=== PATIENT | male | born 1980 | race Caucasian/White ===

== ENCOUNTER 2017-01-29 12:12 | Emergency (ER) | payer OTHER ==
[~2017-01-29] VITALS: Ht 177.8 cm; Wt 73.9 kg
[~2017-01-29 12:12] MED LIST: /THIA10TA OR; DEPA500T OR; FOLI1TAB OR; IBUP400T OR; MULTIVIT PO; TRAZ100T OR
[2017-01-29 12:13] VITALS: BP 133/101
[2017-01-29] MEDS ORDERED: ONDANSETRON 4 MG ORAL DISINTEGRATING TAB (S0181) PO ONE (13:15)
[2017-01-29] MEDS ORDERED: GI COCKTAIL 50ML BTL(HYOSCYAMINE/MAALOX/LIDOCAINE VISCOUS)(1:3:1) PO ONE (13:15)
[2017-01-29] MEDS ORDERED: ZOFR4TAB3 PO (13:32)
== END 2017-01-29 13:39 | disposition home or self-care (01) ==
LOC: M ED 13:16
DX: R10.84 Generalized abdominal pain (principal); R11.2 Nausea with vomiting, unspecified; R19.7 Diarrhea, unspecified; F17.210 Nicotine dependence, cigarettes, uncomplicated

== ENCOUNTER 2017-12-08 11:20 | Emergency (ER) | payer OTHER | END 2017-12-08 15:06 | disposition home or self-care (01) | LOC: M ED 11:20 | DX: M62.838 Other muscle spasm (principal); F41.9 Anxiety disorder, unspecified; F33.9 Major depressive disorder, recurrent, unspecified; R56.9 Unspecified convulsions | CPT/HCPCS: 71101 ==

== ENCOUNTER 2018-02-10 14:26 | Inpatient (IN) | payer OTHER ==
[2018-02-10] MEDS: NS 1,000 ML IV ×2 (14:57→16:14)
[2018-02-10] MEDS: ONDANSETRON 4MG/2ML VIAL (J2405) IV ×2 (14:58→18:19)
[2018-02-10 15:36] LABS: ANION GAP 15 MEQ/L (8-16); BLOOD UREA NITROGEN 15 MG/DL (7-18); CALCIUM LEVEL 10.6 MG/DL (8.5-10.1); CARBON DIOXIDE LEVEL 23 MEQ/L (21-32); CHLORIDE LEVEL 96 MEQ/L (98-107); CREATININE FOR GFR 1.13 MG/DL (0.70-1.30); GLOMERULAR FILTRATION RATE > 60.0 (>60); GLUCOSE, FASTING 120 MG/DL (70-100); MAGNESIUM LEVEL 1.8 MG/DL (1.8-2.4); POTASSIUM SERUM 3.4 MEQ/L (3.5-5.1); SODIUM LEVEL 134 MEQ/L (136-145)
[2018-02-10] MEDS: METOCLOPRAMIDE INJ 10MG/2ML VIAL (J2765) IV (15:37)
[2018-02-10] MEDS: diphenhydrAMINE INJ 50MG/ML VIAL (J1200) IV (15:37)
[2018-02-10 16:41] LABS: BASO % 0.3 % (0.0-1.0); HEMATOCRIT 46.9 % (42.0-52.0); IMMATURE GRANULOCYTE % 0.5 % (0-3.0); LYMPH # 1.5 10^3/uL (1.5-4.5); LYMPH % 9.8 % (24.0-44.0); MEAN CORPUSCULAR HEMOGLOBIN 32.2 pg (27.0-33.0); MEAN CORPUSCULAR HGB CONC 36.2 g/dl (32.0-36.5); MEAN CORPUSCULAR VOLUME 88.8 fl (80.0-96.0); MONO # 0.9 10^3/uL (0.0-0.8); MONO % 6.3 % (0.0-5.0); NEUTROPHILS # 12.4 10^3/uL (1.8-7.7); NEUTROPHILS % 83.1 % (36.0-66.0); PLATELET COUNT, AUTOMATED 189 10^3/uL (150-450); RED BLOOD COUNT 5.28 10^6/uL (4.30-6.10); RED CELL DISTRIBUTION WIDTH 12.1 % (11.5-14.5); WHITE BLOOD COUNT 14.9 10^3/uL (4.0-10.0)
[2018-02-10 16:54] LABS: ALKALINE PHOSPHATASE 105 U/L (45-117); AST/SGOT 43 U/L (7-37); BILIRUBIN,TOTAL 1.4 MG/DL (0.2-1.0); LIPASE 2812 U/L (73-393); TOTAL PROTEIN 8.7 GM/DL (6.4-8.2)
[2018-02-10 17:15] LABS: ALT/SGPT 38 U/L (12-78); BILIRUBIN,DIRECT 0.4 MG/DL (0.0-0.2)
[2018-02-10 17:29] LABS: AMYLASE 198 U/L (25-115)
[2018-02-10] MEDS ORDERED: ISOVUE-370 76% 100ML VIAL (Q9967) As Ordered (18:07)
[2018-02-10] MEDS: MORPHINE 4 MG/ML 1ML VIAL/SYRINGE (J2270) IV ×2 (18:15→20:05)
[2018-02-10] MEDS ORDERED: FOLIC ACID 1 MG in NS 50 ML IV (18:30)
[2018-02-10] MEDS ORDERED: THIAMINE HCL 200 MG/2 ML VIAL (J3411) IV (18:30)
[2018-02-10 18:35] LABS: ALBUMIN 4.7 GM/DL (3.2-5.2); ALBUMIN/GLOBULIN RATIO 1.18 (1.00-1.93)
[2018-02-10 19:19] LABS: INR 0.99; PROTHROMBIN TIME 13.2 SECONDS (12.4-14.5)
[2018-02-10] MEDS: LORazepam 2 MG/ML VIAL (J2060) IV (20:02)
[2018-02-10] MEDS: MAG SULF 1GM/100ML (MAG RUN) 1 GM in APPROPRIATE DILUENT 1 EA IV (20:07)
[2018-02-10 20:54] LABS: ETHYL ALCOHOL (ETHANOL) 0.008 % (0.000-0.010)
[2018-02-10] MEDS: HEPARIN SOD (PORCINE) 5000 UNITS/ML VIAL SC (22:14)
[2018-02-10] MEDS: PROCHLORPERAZINE 10 MG/2 ML VIAL (J0780) IV (23:08)
[2018-02-10] MEDS: KETOROLAC 30 MG/ML VIAL (J1885) IV (23:08)
[2018-02-10] MEDS: MULTIVITAMIN -ADULT INJECTION 10 ML, THIAMINE INJection 100 MG, FOLIC ACID 1 MG in NS 1... IV (23:08)
[2018-02-11 00:08] LABS: ANION GAP 6 MEQ/L (8-16); BLOOD UREA NITROGEN 14 MG/DL (7-18); CALCIUM LEVEL 8.4 MG/DL (8.5-10.1); CARBON DIOXIDE LEVEL 26 MEQ/L (21-32); CHLORIDE LEVEL 106 MEQ/L (98-107); CREATININE FOR GFR 0.92 MG/DL (0.70-1.30); GLOMERULAR FILTRATION RATE > 60.0 (>60); GLUCOSE, FASTING 117 MG/DL (70-100); POTASSIUM SERUM 3.8 MEQ/L (3.5-5.1); SODIUM LEVEL 138 MEQ/L (136-145)
[2018-02-11] MEDS: KCL 40MEQ in NS 1000ML 1,000 ML IV ×7 (01:40→19:53)
[2018-02-11] MEDS: ONDANSETRON 4MG/2ML VIAL (J2405) IV ×3 (02:27→18:03)
[2018-02-11] MEDS: MORPHINE 4 MG/ML 1ML VIAL/SYRINGE (J2270) IV ×2 (04:57→18:12)
[2018-02-11] MEDS: HEPARIN SOD (PORCINE) 5000 UNITS/ML VIAL SC ×3 (05:37→19:52)
[2018-02-11 06:57] LABS: MEAN CORPUSCULAR HEMOGLOBIN 32.4 pg (27.0-33.0); MEAN CORPUSCULAR HGB CONC 34.7 g/dl (32.0-36.5); MEAN CORPUSCULAR VOLUME 93.4 fl (80.0-96.0); PLATELET COUNT, AUTOMATED 119 10^3/uL (150-450); RED BLOOD COUNT 4.07 10^6/uL (4.30-6.10); RED CELL DISTRIBUTION WIDTH 12.4 % (11.5-14.5); WHITE BLOOD COUNT 10.2 10^3/uL (4.0-10.0)
[2018-02-11 06:58] LABS: HEMOGLOBIN 13.2 g/dl (13.5-17.5)
[2018-02-11 07:21] LABS: ALBUMIN 3.2 GM/DL (3.2-5.2); ALBUMIN/GLOBULIN RATIO 1.03 (1.00-1.93); ALKALINE PHOSPHATASE 71 U/L (45-117); ALT/SGPT 23 U/L (12-78); ANION GAP 4 MEQ/L (8-16); AST/SGOT 23 U/L (7-37); BILIRUBIN,TOTAL 1.2 MG/DL (0.2-1.0); BLOOD UREA NITROGEN 13 MG/DL (7-18); CALCIUM LEVEL 8.2 MG/DL (8.5-10.1); CARBON DIOXIDE LEVEL 26 MEQ/L (21-32); CHLORIDE LEVEL 109 MEQ/L (98-107); CREATININE FOR GFR 0.76 MG/DL (0.70-1.30); GLOMERULAR FILTRATION RATE > 60.0 (>60); GLUCOSE, FASTING 89 MG/DL (70-100); POTASSIUM SERUM 4.3 MEQ/L (3.5-5.1); SODIUM LEVEL 139 MEQ/L (136-145); TOTAL PROTEIN 6.3 GM/DL (6.4-8.2); TRIGLYCERIDES LEVEL 103 MG/DL (<150)
[2018-02-11] MEDS: MULTIVITAMINS/MINERALS THERAP 1 TAB PO (09:06)
[2018-02-11] MEDS: THIAMINE HCL 200 MG/2 ML VIAL (J3411) IV (09:07)
[2018-02-11] MEDS: FOLIC ACID 1 MG in NS 50 ML IV (09:36)
[2018-02-11] MEDS: KETOROLAC 30 MG/ML VIAL (J1885) IV ×2 (09:59→21:22)
[2018-02-11 10:37] LABS: APPEARANCE, URINE CLEAR (CLEAR); BACTERIA, URINE AUTO NEGATIVE (NEGATIVE); BILIRUBIN, URINE AUTO NEGATIVE (NEGATIVE); BLOOD, URINE BLOOD NEGATIVE (NEGATIVE); COLOR, URINE YELLOW (YELLOW); GLUCOSE, URINE (UA) AUTO NEGATIVE (NEGATIVE); KETONE, URINE AUTO TRACE mg/dL (NEGATIVE); LEUKOCYTE ESTERASE, URINE AUTO NEGATIVE (NEGATIVE); MUCUS, URINE SMALL (NEGATIVE); NITRITE, URINE AUTO NEGATIVE (NEGATIVE); PROTEIN, URINE AUTO NEGATIVE (NEGATIVE); RBC, URINE AUTO 1 /HPF (0-3); SPECIFIC GRAVITY URINE AUTO 1.015 (1.002-1.035); SQUAMOUS EPITHELIAL CELL UR AU 0 /HPF (0-6); UROBILINOGEN, URINE AUTO 0.2 mg/dL (0.0-2.0); WBC, URINE AUTO 0 /HPF (0-3)
[2018-02-11] MEDS: PROCHLORPERAZINE 10 MG/2 ML VIAL (J0780) IV (11:42)
[2018-02-11] MEDS: ACETAMINOPHEN TAB 650MG DOSE (2X325MG) PO (16:07)
[2018-02-12] MEDS: KCL 40MEQ in NS 1000ML 1,000 ML IV ×4 (02:15→23:10)
[2018-02-12] MEDS: HEPARIN SOD (PORCINE) 5000 UNITS/ML VIAL SC (05:22)
[2018-02-12 07:13] LABS: HEMATOCRIT 35.7 % (42.0-52.0); HEMOGLOBIN 12.3 g/dl (13.5-17.5); MEAN CORPUSCULAR HEMOGLOBIN 32.2 pg (27.0-33.0); MEAN CORPUSCULAR HGB CONC 34.5 g/dl (32.0-36.5); MEAN CORPUSCULAR VOLUME 93.5 fl (80.0-96.0); RED BLOOD COUNT 3.82 10^6/uL (4.30-6.10); RED CELL DISTRIBUTION WIDTH 12.1 % (11.5-14.5); WHITE BLOOD COUNT 10.8 10^3/uL (4.0-10.0)
[2018-02-12 07:26] LABS: PLATELET COUNT, AUTOMATED 95 10^3/uL (150-450)
[2018-02-12 07:27] LABS: PLATELET F 96
[2018-02-12] MEDS: ONDANSETRON 4MG/2ML VIAL (J2405) IV ×3 (07:34→23:16)
[2018-02-12] MEDS: MULTIVITAMINS/MINERALS THERAP 1 TAB PO (07:35)
[2018-02-12] MEDS: FOLIC ACID 1 MG in NS 50 ML IV (07:35)
[2018-02-12] MEDS: ACETAMINOPHEN TAB 650MG DOSE (2X325MG) PO (07:35)
[2018-02-12 07:36] LABS: ALBUMIN 3.2 GM/DL (3.2-5.2); ALKALINE PHOSPHATASE 145 U/L (45-117); ALT/SGPT 66 U/L (12-78); ANION GAP 8 MEQ/L (8-16); AST/SGOT 126 U/L (7-37); BILIRUBIN,TOTAL 2.2 MG/DL (0.2-1.0); BLOOD UREA NITROGEN 7 MG/DL (7-18); CALCIUM LEVEL 8.4 MG/DL (8.5-10.1); CARBON DIOXIDE LEVEL 22 MEQ/L (21-32); CHLORIDE LEVEL 108 MEQ/L (98-107); CREATININE FOR GFR 0.69 MG/DL (0.70-1.30); GLOMERULAR FILTRATION RATE > 60.0 (>60); GLUCOSE, FASTING 65 MG/DL (70-100); MAGNESIUM LEVEL 1.9 MG/DL (1.8-2.4); POTASSIUM SERUM 4.6 MEQ/L (3.5-5.1); SODIUM LEVEL 138 MEQ/L (136-145); TOTAL PROTEIN 6.1 GM/DL (6.4-8.2)
[2018-02-12] MEDS: MORPHINE 4 MG/ML 1ML VIAL/SYRINGE (J2270) IV ×3 (08:41→23:17)
[2018-02-12] MEDS: THIAMINE HCL 200 MG/2 ML VIAL (J3411) IV (08:41)
[2018-02-12] MEDS: PROCHLORPERAZINE 10 MG/2 ML VIAL (J0780) IV (12:12)
[2018-02-12 12:45] LABS: HEPATITIS B SURFACE ANTIGEN NEGATIVE (NEGATIVE)
[2018-02-12 13:01] LABS: HEPATITIS B CORE ANTIBODY IGM NEGATIVE (NEGATIVE)
[2018-02-12 13:01] LABS: HEPATITIS C VIRUS ABY INDEX < 0.0 INDEX (<0.8)
[2018-02-12 13:10] LABS: HEPATITIS A ANTIBODY IGM NEGATIVE (NEGATIVE)
[2018-02-13] MEDS: KCL 40MEQ in NS 1000ML 1,000 ML IV (05:44)
[2018-02-13 06:23] LABS: HEMATOCRIT 39.8 % (42.0-52.0); HEMOGLOBIN 13.6 g/dl (13.5-17.5); MEAN CORPUSCULAR HEMOGLOBIN 31.5 pg (27.0-33.0); MEAN CORPUSCULAR HGB CONC 34.2 g/dl (32.0-36.5); MEAN CORPUSCULAR VOLUME 92.1 fl (80.0-96.0); PLATELET COUNT, AUTOMATED 103 10^3/uL (150-450); RED BLOOD COUNT 4.32 10^6/uL (4.30-6.10); RED CELL DISTRIBUTION WIDTH 11.9 % (11.5-14.5)
[2018-02-13 06:50] LABS: ALBUMIN 3.4 GM/DL (3.2-5.2); ALBUMIN/GLOBULIN RATIO 0.81 (1.00-1.93); ALKALINE PHOSPHATASE 158 U/L (45-117); ALT/SGPT 51 U/L (12-78); ANION GAP 8 MEQ/L (8-16); AST/SGOT 48 U/L (7-37); BILIRUBIN,TOTAL 1.4 MG/DL (0.2-1.0); BLOOD UREA NITROGEN 7 MG/DL (7-18); CARBON DIOXIDE LEVEL 24 MEQ/L (21-32); CHLORIDE LEVEL 105 MEQ/L (98-107); CREATININE FOR GFR 0.76 MG/DL (0.70-1.30); GLOMERULAR FILTRATION RATE > 60.0 (>60); GLUCOSE, FASTING 85 MG/DL (70-100); MAGNESIUM LEVEL 2.1 MG/DL (1.8-2.4); POTASSIUM SERUM 4.7 MEQ/L (3.5-5.1); SODIUM LEVEL 137 MEQ/L (136-145); TOTAL PROTEIN 7.6 GM/DL (6.4-8.2)
[2018-02-13] MEDS: FOLIC ACID 1 MG in NS 50 ML IV (08:46)
[2018-02-13] MEDS: THIAMINE HCL 200 MG/2 ML VIAL (J3411) IV (08:47)
[2018-02-13] MEDS: MULTIVITAMINS/MINERALS THERAP 1 TAB PO (08:47)
== END 2018-02-13 13:15 | disposition home or self-care (01) | DRG 282 ==
LOC: M ED 14:26 → M ED INP 18:34 → M MS5PR 19:43
DX: K85.20 Alcohol induced acute pancreatitis without necrosis or infection (principal); F17.298 Nicotine dependence, other tobacco product, with other nicotine-induced disorders; F10.10 Alcohol abuse, uncomplicated; R74.0 Nonspecific elevation of levels of transaminase and lactic acid dehydrogenase [LDH]

== ENCOUNTER 2018-08-01 16:36 | Inpatient (IN) | payer OTHER ==
[2018-08-01] MEDS: OXAZEPAM 15 MG CAP PO (17:08)
[2018-08-01 17:36] LABS: HEMOGLOBIN 14.7 g/dl (13.5-17.5); MEAN CORPUSCULAR HEMOGLOBIN 32.2 pg (27.0-33.0); MEAN CORPUSCULAR VOLUME 91.9 fl (80.0-96.0); PLATELET COUNT, AUTOMATED 145 10^3/uL (150-450); RED BLOOD COUNT 4.57 10^6/uL (4.30-6.10); RED CELL DISTRIBUTION WIDTH 11.9 % (11.5-14.5); WHITE BLOOD COUNT 4.5 10^3/uL (4.0-10.0)
[2018-08-01 18:07] LABS: ACETAMINOPHEN LEVEL < 2.0 UG/ML (10.0-30.0); ALBUMIN 4.1 GM/DL (3.2-5.2); ALBUMIN/GLOBULIN RATIO 1.21 (1.00-1.93); ALKALINE PHOSPHATASE 79 U/L (45-117); ALT/SGPT 94 U/L (12-78); ANION GAP 13 MEQ/L (8-16); AST/SGOT 70 U/L (7-37); BILIRUBIN,DIRECT 0.3 MG/DL (0.0-0.2); BILIRUBIN,TOTAL 0.7 MG/DL (0.2-1.0); BLOOD UREA NITROGEN 7 MG/DL (7-18); CALCIUM LEVEL 8.8 MG/DL (8.5-10.1); CARBON DIOXIDE LEVEL 28 MEQ/L (21-32); CHLORIDE LEVEL 98 MEQ/L (98-107); CREATININE FOR GFR 0.92 MG/DL (0.70-1.30); ETHYL ALCOHOL (ETHANOL) 0.223 % (0.000-0.010); GLOMERULAR FILTRATION RATE > 60.0 (>60); GLUCOSE, FASTING 183 MG/DL (70-100); POTASSIUM SERUM 3.4 MEQ/L (3.5-5.1); SALICYLATE LEVEL < 1.7 MG/DL (5.0-30.0); SODIUM LEVEL 139 MEQ/L (136-145); TOTAL PROTEIN 7.5 GM/DL (6.4-8.2)
[2018-08-01 18:13] LABS: AMPHETAMINES LEVEL URINE NEGATIVE (NEGATIVE); BARBITURATES URINE NEGATIVE (NEGATIVE); BENZODIAZEPINES URINE NEGATIVE (NEGATIVE); CANNABINOIDS URINE POSITIVE (NEGATIVE); COCAINE METABOLITE URINE NEGATIVE (NEGATIVE); METHADONE URINE NEGATIVE (NEGATIVE); OPIATES URINE NEGATIVE (NEGATIVE); PHENCYCLIDINE URINE NEGATIVE (NEGATIVE)
[2018-08-01] MEDS: POTASSIUM CHLORIDE 10 MEQ SR TABLET PO (19:15)
[2018-08-01] MEDS: PHENobarbital 30 MG TAB PO ×2 (19:30→20:30)
[2018-08-01] MEDS ORDERED: MOM 30ML SUSPENSION UDC PO (23:30)
[2018-08-01] MEDS ORDERED: MAALOX 30 ML SUSP *UDC PO (23:30)
[2018-08-02] MEDS: OXAZEPAM 15 MG CAP PO ×3 (00:58→20:27)
[2018-08-02] MEDS: NICOTINE 21MG/24HR 1 EA TRANSDERMAL TD (09:00)
[2018-08-02] MEDS: FOLIC ACID 1 MG TAB PO (09:37)
[2018-08-02] MEDS: MULTIVITAMINS/MINERALS THERAP 1 TAB PO (09:37)
[2018-08-02] MEDS: THIAMINE 100 MG TAB PO (09:37)
[2018-08-02 11:29] LABS: ALBUMIN 4.5 GM/DL (3.2-5.2); ALBUMIN/GLOBULIN RATIO 1.36 (1.00-1.93); ALKALINE PHOSPHATASE 84 U/L (45-117); ALT/SGPT 103 U/L (12-78); ANION GAP 9 MEQ/L (8-16); AST/SGOT 99 U/L (7-37); BLOOD UREA NITROGEN 11 MG/DL (7-18); CALCIUM LEVEL 10.4 MG/DL (8.5-10.1); CARBON DIOXIDE LEVEL 31 MEQ/L (21-32); CHLORIDE LEVEL 98 MEQ/L (98-107); CREATININE FOR GFR 0.92 MG/DL (0.70-1.30); GLOMERULAR FILTRATION RATE > 60.0 (>60); GLUCOSE, FASTING 108 MG/DL (70-100); SODIUM LEVEL 138 MEQ/L (136-145); TOTAL PROTEIN 7.8 GM/DL (6.4-8.2)
[2018-08-02] MEDS: SERTRALINE HCL 25 MG TABLET PO (15:30)
[2018-08-02] MEDS: traZODone 50 MG TAB PO (20:27)
[2018-08-02] MEDS: PRAZOSIN 1 MG CAP PO (20:28)
[2018-08-03] MEDS: MULTIVITAMINS/MINERALS THERAP 1 TAB PO (08:13)
[2018-08-03] MEDS: SERTRALINE HCL 25 MG TABLET PO (08:13)
[2018-08-03] MEDS: THIAMINE 100 MG TAB PO (08:13)
[2018-08-03] MEDS: FOLIC ACID 1 MG TAB PO (08:13)
[2018-08-03] MEDS: OXAZEPAM 15 MG CAP PO ×3 (08:13→20:11)
[2018-08-03] MEDS: NICOTINE 21MG/24HR 1 EA TRANSDERMAL TD (08:14)
[2018-08-03] MEDS ORDERED: OXAZEPAM 15 MG CAP PO (16:30)
[2018-08-03] MEDS: PRAZOSIN 1 MG CAP PO (20:10)
[2018-08-03] MEDS: traZODone 50 MG TAB PO (20:11)
[2018-08-04] MEDS: NICOTINE 21MG/24HR 1 EA TRANSDERMAL TD (09:18)
[2018-08-04] MEDS: FOLIC ACID 1 MG TAB PO (09:18)
[2018-08-04] MEDS: MULTIVITAMINS/MINERALS THERAP 1 TAB PO (09:18)
[2018-08-04] MEDS: THIAMINE 100 MG TAB PO (09:18)
[2018-08-04] MEDS: OXAZEPAM 15 MG CAP PO ×3 (09:18→20:15)
[2018-08-04] MEDS: SERTRALINE HCL 25 MG TABLET PO (09:18)
[2018-08-04 10:00] LABS: ALBUMIN 4.1 GM/DL (3.2-5.2); ALBUMIN/GLOBULIN RATIO 1.24 (1.00-1.93); ALKALINE PHOSPHATASE 78 U/L (45-117); ALT/SGPT 108 U/L (12-78); ANION GAP 10 MEQ/L (8-16); AST/SGOT 118 U/L (7-37); BLOOD UREA NITROGEN 16 MG/DL (7-18); CALCIUM LEVEL 9.6 MG/DL (8.5-10.1); CARBON DIOXIDE LEVEL 27 MEQ/L (21-32); CHLORIDE LEVEL 100 MEQ/L (98-107); CREATININE FOR GFR 0.98 MG/DL (0.70-1.30); GLOMERULAR FILTRATION RATE > 60.0 (>60); GLUCOSE, FASTING 153 MG/DL (70-100); POTASSIUM SERUM 3.9 MEQ/L (3.5-5.1); SODIUM LEVEL 137 MEQ/L (136-145); TOTAL PROTEIN 7.4 GM/DL (6.4-8.2)
[2018-08-04 10:20] LABS: HEPATITIS B SURFACE ANTIGEN NEGATIVE (NEGATIVE)
[2018-08-04 10:48] LABS: HEPATITIS C VIRUS ABY INDEX < 0.0 INDEX (<0.8)
[2018-08-04 10:49] LABS: HEPATITIS B CORE ANTIBODY IGM NEGATIVE (NEGATIVE)
[2018-08-04 10:50] LABS: HEPATITIS A ANTIBODY IGM NEGATIVE (NEGATIVE)
[2018-08-04] MEDS: PRAZOSIN 1 MG CAP PO (20:15)
[2018-08-04] MEDS: OLANZapine 5 MG TAB PO (20:15)
[2018-08-04] MEDS: traZODone 50 MG TAB PO (20:15)
[2018-08-05] MEDS: NICOTINE 21MG/24HR 1 EA TRANSDERMAL TD (08:36)
[2018-08-05] MEDS: SERTRALINE HCL 25 MG TABLET PO ×2 (08:36→09:34)
[2018-08-05] MEDS: MULTIVITAMINS/MINERALS THERAP 1 TAB PO (08:36)
[2018-08-05] MEDS: OXAZEPAM 15 MG CAP PO ×2 (08:36→20:25)
[2018-08-05] MEDS: THIAMINE 100 MG TAB PO (08:36)
[2018-08-05] MEDS: FOLIC ACID 1 MG TAB PO (08:36)
[2018-08-05] MEDS: hydrOXYzine 25 MG TAB PO (16:13)
[2018-08-05] MEDS: OLANZapine 5 MG TAB PO (20:25)
[2018-08-05] MEDS: traZODone 50 MG TAB PO (20:25)
[2018-08-05] MEDS: PRAZOSIN 1 MG CAP PO (20:26)
[2018-08-05] MEDS: ACETAMINOPHEN TAB 650MG DOSE (2X325MG) PO (20:28)
[2018-08-06] MEDS: THIAMINE 100 MG TAB PO (08:16)
[2018-08-06] MEDS: MULTIVITAMINS/MINERALS THERAP 1 TAB PO (08:17)
[2018-08-06] MEDS: OXAZEPAM 15 MG CAP PO ×2 (08:17→20:10)
[2018-08-06] MEDS: FOLIC ACID 1 MG TAB PO (08:17)
[2018-08-06] MEDS: NICOTINE 21MG/24HR 1 EA TRANSDERMAL TD (08:17)
[2018-08-06] MEDS: SERTRALINE HCL 50 MG TAB PO (08:17)
[2018-08-06] MEDS: hydrOXYzine 25 MG TAB PO (12:52)
[2018-08-06] MEDS: PRAZOSIN 1 MG CAP PO (20:10)
[2018-08-06] MEDS: traZODone 50 MG TAB PO (20:10)
[2018-08-06] MEDS: OLANZapine 10 MG TAB PO (20:10)
[2018-08-06] MEDS: ACETAMINOPHEN TAB 650MG DOSE (2X325MG) PO (21:32)
[2018-08-07] MEDS: MULTIVITAMINS/MINERALS THERAP 1 TAB PO (08:42)
[2018-08-07] MEDS: OXAZEPAM 15 MG CAP PO ×2 (08:42→20:05)
[2018-08-07] MEDS: SERTRALINE HCL 50 MG TAB PO (08:42)
[2018-08-07] MEDS: FOLIC ACID 1 MG TAB PO (08:42)
[2018-08-07] MEDS: NICOTINE 21MG/24HR 1 EA TRANSDERMAL TD (08:42)
[2018-08-07] MEDS: THIAMINE 100 MG TAB PO (08:42)
[2018-08-07] MEDS: ACETAMINOPHEN TAB 650MG DOSE (2X325MG) PO (13:12)
[2018-08-07] MEDS: hydrOXYzine 25 MG TAB PO ×2 (13:12→20:05)
[2018-08-07] MEDS: traZODone 50 MG TAB PO (20:05)
[2018-08-07] MEDS: OLANZapine 10 MG TAB PO (20:05)
[2018-08-07] MEDS: PRAZOSIN 1 MG CAP PO (20:05)
[2018-08-08] MEDS: MULTIVITAMINS/MINERALS THERAP 1 TAB PO (08:26)
[2018-08-08] MEDS: SERTRALINE HCL 50 MG TAB PO (08:26)
[2018-08-08] MEDS: THIAMINE 100 MG TAB PO (08:26)
[2018-08-08] MEDS: OXAZEPAM 15 MG CAP PO ×2 (08:26→21:16)
[2018-08-08] MEDS: NICOTINE 21MG/24HR 1 EA TRANSDERMAL TD (08:26)
[2018-08-08] MEDS: FOLIC ACID 1 MG TAB PO (08:26)
[2018-08-08] MEDS: hydrOXYzine 25 MG TAB PO (13:22)
[2018-08-08] MEDS: OLANZapine 10 MG TAB PO (21:16)
[2018-08-08] MEDS: traZODone 50 MG TAB PO (21:16)
[2018-08-08] MEDS: PRAZOSIN 1 MG CAP PO (21:16)
[2018-08-08] MEDS: ACETAMINOPHEN TAB 650MG DOSE (2X325MG) PO (21:20)
[2018-08-09] MEDS: FOLIC ACID 1 MG TAB PO (08:38)
[2018-08-09] MEDS: SERTRALINE HCL 50 MG TAB PO (08:38)
[2018-08-09] MEDS: OXAZEPAM 15 MG CAP PO ×2 (08:38→20:49)
[2018-08-09] MEDS: THIAMINE 100 MG TAB PO (08:38)
[2018-08-09] MEDS: NICOTINE 21MG/24HR 1 EA TRANSDERMAL TD (08:38)
[2018-08-09] MEDS: MULTIVITAMINS/MINERALS THERAP 1 TAB PO (08:38)
[2018-08-09] MEDS: hydrOXYzine 25 MG TAB PO ×2 (08:40→14:19)
[2018-08-09] MEDS: ACETAMINOPHEN TAB 650MG DOSE (2X325MG) PO (09:11)
[2018-08-09] MEDS: OLANZapine 5 MG TAB PO (20:48)
[2018-08-09] MEDS: PRAZOSIN 1 MG CAP PO (20:49)
[2018-08-09] MEDS: traZODone 50 MG TAB PO (20:49)
[2018-08-10] MEDS: THIAMINE 100 MG TAB PO (08:24)
[2018-08-10] MEDS: SERTRALINE HCL 50 MG TAB PO (08:24)
[2018-08-10] MEDS: hydrOXYzine 25 MG TAB PO ×2 (08:24→14:31)
[2018-08-10] MEDS: MULTIVITAMINS/MINERALS THERAP 1 TAB PO (08:24)
[2018-08-10] MEDS: NICOTINE 21MG/24HR 1 EA TRANSDERMAL TD (08:24)
[2018-08-10] MEDS: FOLIC ACID 1 MG TAB PO (08:25)
[2018-08-10] MEDS: OXAZEPAM 15 MG CAP PO ×2 (08:25→21:12)
[2018-08-10] MEDS: ACETAMINOPHEN TAB 650MG DOSE (2X325MG) PO ×2 (09:14→21:14)
[2018-08-10] MEDS: PRAZOSIN 1 MG CAP PO (21:11)
[2018-08-10] MEDS: traZODone 50 MG TAB PO (21:12)
[2018-08-10] MEDS: OLANZapine 5 MG TAB PO (21:12)
[2018-08-11] MEDS: NICOTINE 21MG/24HR 1 EA TRANSDERMAL TD (08:23)
[2018-08-11] MEDS: hydrOXYzine 25 MG TAB PO (08:23)
[2018-08-11] MEDS: OXAZEPAM 15 MG CAP PO (08:24)
[2018-08-11] MEDS: MULTIVITAMINS/MINERALS THERAP 1 TAB PO (08:24)
[2018-08-11] MEDS: SERTRALINE HCL 50 MG TAB PO (08:24)
[2018-08-11] MEDS: THIAMINE 100 MG TAB PO (08:24)
[2018-08-11] MEDS: FOLIC ACID 1 MG TAB PO (08:24)
[2018-08-11] MEDS: ACETAMINOPHEN TAB 650MG DOSE (2X325MG) PO (08:26)
== END 2018-08-11 11:30 | disposition home or self-care (01) | DRG 751 ==
LOC: M PSY 08-02 00:48 → M ED 16:36 → M ED INP 23:23
DX: F33.3 Major depressive disorder, recurrent, severe with psychotic symptoms (principal); F10.239 Alcohol dependence with withdrawal, unspecified; F43.10 Post-traumatic stress disorder, unspecified; E87.6 Hypokalemia; Z62.810 Personal history of physical and sexual abuse in childhood

== ENCOUNTER 2018-08-23 15:17 | Emergency (ER) | payer OTHER | END 2018-08-23 17:07 | disposition left against medical advice (07) | LOC: M ED 17:07 | DX: M25.511 Pain in right shoulder (principal); Z53.21 Procedure and treatment not carried out due to patient leaving prior to being seen by health care provider | CPT/HCPCS: 99284 ==

== ENCOUNTER 2018-08-24 13:40 | Emergency (ER) | payer OTHER | END 2018-08-24 14:15 | disposition left against medical advice (07) | LOC: M ED 13:40 | DX: Z53.29 Procedure and treatment not carried out because of patient's decision for other reasons (principal) ==

== ENCOUNTER 2018-08-25 06:19 | Emergency (ER) | payer OTHER | END 2018-08-25 08:05 | disposition home or self-care (01) | LOC: M ED 06:19 | DX: M25.511 Pain in right shoulder (principal); M54.5 Low back pain; F43.10 Post-traumatic stress disorder, unspecified; F31.9 Bipolar disorder, unspecified; F41.9 Anxiety disorder, unspecified; Z87.442 Personal history of urinary calculi; Z87.19 Personal history of other diseases of the digestive system; Z79.899 Other long term (current) drug therapy | CPT/HCPCS: 72110 ==

== ENCOUNTER 2018-09-21 13:50 | Inpatient (IN) | payer OTHER ==
[2018-09-21 14:43] LABS: HEMATOCRIT 39.6 % (42.0-52.0); HEMOGLOBIN 13.5 g/dl (13.5-17.5); MEAN CORPUSCULAR HEMOGLOBIN 30.9 pg (27.0-33.0); MEAN CORPUSCULAR HGB CONC 34.1 g/dl (32.0-36.5); MEAN CORPUSCULAR VOLUME 90.6 fl (80.0-96.0); PLATELET COUNT, AUTOMATED 206 10^3/uL (150-450); RED BLOOD COUNT 4.37 10^6/uL (4.30-6.10); RED CELL DISTRIBUTION WIDTH 11.5 % (11.5-14.5); WHITE BLOOD COUNT 6.8 10^3/uL (4.0-10.0)
[2018-09-21 15:20] LABS: ACETAMINOPHEN LEVEL < 2.0 UG/ML (10.0-30.0); ALBUMIN/GLOBULIN RATIO 1.14 (1.00-1.93); ALKALINE PHOSPHATASE 61 U/L (45-117); ALT/SGPT 26 U/L (12-78); ANION GAP 10 MEQ/L (8-16); AST/SGOT 18 U/L (7-37); BILIRUBIN,DIRECT < 0.1 MG/DL (0.0-0.2); BILIRUBIN,TOTAL 0.4 MG/DL (0.2-1.0); BLOOD UREA NITROGEN 22 MG/DL (7-18); CALCIUM LEVEL 9.2 MG/DL (8.5-10.1); CARBON DIOXIDE LEVEL 25 MEQ/L (21-32); CHLORIDE LEVEL 104 MEQ/L (98-107); CREATININE FOR GFR 1.19 MG/DL (0.70-1.30); ETHYL ALCOHOL (ETHANOL) 0.003 % (0.000-0.010); GLOMERULAR FILTRATION RATE > 60.0 (>60); GLUCOSE, FASTING 79 MG/DL (70-100); POTASSIUM SERUM 4.2 MEQ/L (3.5-5.1); SALICYLATE LEVEL < 1.7 MG/DL (5.0-30.0); SODIUM LEVEL 139 MEQ/L (136-145); TOTAL PROTEIN 7.5 GM/DL (6.4-8.2)
[2018-09-21 15:22] LABS: AMPHETAMINES LEVEL URINE NEGATIVE (NEGATIVE); BARBITURATES URINE NEGATIVE (NEGATIVE); BENZODIAZEPINES URINE NEGATIVE (NEGATIVE); CANNABINOIDS URINE NEGATIVE (NEGATIVE)
[2018-09-21 15:23] LABS: COCAINE METABOLITE URINE NEGATIVE (NEGATIVE); METHADONE URINE NEGATIVE (NEGATIVE); OPIATES URINE NEGATIVE (NEGATIVE); PHENCYCLIDINE URINE NEGATIVE (NEGATIVE)
[2018-09-21] MEDS ORDERED: MOM 30ML SUSPENSION UDC PO (16:45)
[2018-09-21] MEDS ORDERED: MAALOX 30 ML SUSP *UDC PO (16:45)
[2018-09-21] MEDS: MIRTAZAPINE 15 MG TAB PO (21:21)
[2018-09-21] MEDS: hydrOXYzine 50 MG TAB PO (21:21)
[2018-09-22] MEDS: SERTRALINE HCL 50 MG TAB PO (08:38)
[2018-09-22] MEDS: ARIPiprazole 10 MG TAB PO (08:38)
[2018-09-22] MEDS: hydrOXYzine 50 MG TAB PO ×2 (08:38→21:23)
[2018-09-22] MEDS: PROPRANOLOL 20 MG TAB PO (08:40)
[2018-09-22] MEDS: LIDOCAINE 5% (LIDODERM) PATCH TD (09:59)
[2018-09-22] MEDS: NICOTINE 14 MG/24 HR TRANSDERMAL TD (13:02)
[2018-09-22] MEDS: **NOTE PATIENT COMMENT** MISC XX (17:11)
[2018-09-22] MEDS: MIRTAZAPINE 15 MG TAB PO (21:23)
[2018-09-22] MEDS: ACETAMINOPHEN TAB 650MG DOSE (2X325MG) PO (21:24)
[2018-09-23] MEDS: ARIPiprazole 10 MG TAB PO (08:54)
[2018-09-23] MEDS: LIDOCAINE 5% (LIDODERM) PATCH TD (08:54)
[2018-09-23] MEDS: hydrOXYzine 50 MG TAB PO ×2 (08:54→21:05)
[2018-09-23] MEDS: NICOTINE 14 MG/24 HR TRANSDERMAL TD (08:54)
[2018-09-23] MEDS: SERTRALINE HCL 50 MG TAB PO (08:54)
[2018-09-23] MEDS: ACETAMINOPHEN TAB 650MG DOSE (2X325MG) PO ×2 (12:30→21:06)
[2018-09-23] MEDS: **NOTE PATIENT COMMENT** MISC XX (21:00)
[2018-09-23] MEDS: MIRTAZAPINE 15 MG TAB PO (21:05)
[2018-09-24] MEDS: SERTRALINE HCL 50 MG TAB PO (08:51)
[2018-09-24] MEDS: hydrOXYzine 50 MG TAB PO ×2 (08:51→21:49)
[2018-09-24] MEDS: ARIPiprazole 10 MG TAB PO (08:51)
[2018-09-24] MEDS: NICOTINE 14 MG/24 HR TRANSDERMAL TD (08:51)
[2018-09-24] MEDS: LIDOCAINE 5% (LIDODERM) PATCH TD (08:52)
[2018-09-24] MEDS: PROPRANOLOL 20 MG TAB PO (14:34)
[2018-09-24] MEDS: ACETAMINOPHEN TAB 650MG DOSE (2X325MG) PO (17:14)
[2018-09-24] MEDS: **NOTE PATIENT COMMENT** MISC XX (21:47)
[2018-09-24] MEDS: MIRTAZAPINE 15 MG TAB PO (21:49)
[2018-09-25] MEDS: hydrOXYzine 50 MG TAB PO ×2 (08:29→21:04)
[2018-09-25] MEDS: PROPRANOLOL 20 MG TAB PO (08:29)
[2018-09-25] MEDS: ARIPiprazole 10 MG TAB PO (08:29)
[2018-09-25] MEDS: SERTRALINE HCL 25 MG TABLET PO (08:29)
[2018-09-25] MEDS: VENLAFAXINE 37.5 MG TAB PO (08:29)
[2018-09-25] MEDS: NICOTINE 14 MG/24 HR TRANSDERMAL TD (08:30)
[2018-09-25] MEDS: LIDOCAINE 5% (LIDODERM) PATCH TD (08:35)
[2018-09-25] MEDS: ACETAMINOPHEN TAB 650MG DOSE (2X325MG) PO ×2 (12:19→21:04)
[2018-09-25] MEDS: **NOTE PATIENT COMMENT** MISC XX (21:03)
[2018-09-25] MEDS: MIRTAZAPINE 15 MG TAB PO (21:04)
[2018-09-26] MEDS: NICOTINE 14 MG/24 HR TRANSDERMAL TD (08:21)
[2018-09-26] MEDS: LIDOCAINE 5% (LIDODERM) PATCH TD (08:22)
[2018-09-26] MEDS: PROPRANOLOL 20 MG TAB PO ×2 (08:22→15:08)
[2018-09-26] MEDS: ARIPiprazole 10 MG TAB PO (08:22)
[2018-09-26] MEDS: SERTRALINE HCL 25 MG TABLET PO (08:22)
[2018-09-26] MEDS: hydrOXYzine 50 MG TAB PO ×2 (08:22→21:26)
[2018-09-26] MEDS: VENLAFAXINE 37.5 MG TAB PO (08:22)
[2018-09-26] MEDS: ACETAMINOPHEN TAB 650MG DOSE (2X325MG) PO ×2 (11:52→21:46)
[2018-09-26] MEDS: MIRTAZAPINE 15 MG TAB PO (21:26)
[2018-09-26] MEDS: **NOTE PATIENT COMMENT** MISC XX (21:54)
[2018-09-27] MEDS: SERTRALINE HCL 25 MG TABLET PO (08:08)
[2018-09-27] MEDS: hydrOXYzine 50 MG TAB PO (08:08)
[2018-09-27] MEDS: VENLAFAXINE 37.5 MG TAB PO (08:08)
[2018-09-27] MEDS: NICOTINE 14 MG/24 HR TRANSDERMAL TD (08:08)
[2018-09-27] MEDS: ARIPiprazole 10 MG TAB PO (08:08)
[2018-09-27] MEDS: LIDOCAINE 5% (LIDODERM) PATCH TD (08:09)
[2018-09-27] MEDS: PROPRANOLOL 20 MG TAB PO (08:11)
[2018-09-27] MEDS: LOPERAMIDE 2 MG CAP PO ×2 (10:01→11:22)
== END 2018-09-27 14:05 | disposition home or self-care (01) | DRG 751 ==
LOC: M ED 13:50 → M ED INP 16:41 → M PSY 17:11
DX: F32.3 Major depressive disorder, single episode, severe with psychotic features (principal); F43.10 Post-traumatic stress disorder, unspecified; M54.5 Low back pain; F17.290 Nicotine dependence, other tobacco product, uncomplicated; M25.511 Pain in right shoulder; Z87.442 Personal history of urinary calculi; Z62.810 Personal history of physical and sexual abuse in childhood; Z62.811 Personal history of psychological abuse in childhood; Z79.899 Other long term (current) drug therapy

== ENCOUNTER 2019-01-28 11:00 | Emergency (ER) | payer OTHER ==
[~2019-01-28] VITALS: Ht 177.8 cm; Wt 88.5 kg
[~2019-01-28 11:00] MED LIST changes: +ARIP1TAB PO; +CYCL10TA PO; +HYDR-3363 PO; +HYDR50TA70 PO; +IBUP-1022 PO; +IBUP1TAB6 GT; +LIDO5TD TD; +LOPE2CA PO; +MINI1CAP PO; +MIRT15TA3 PO; +MIRT1TAB16 PO; +MIRT30TA3; +MULT1TAB10 PO; +NICO14PA TD; +OLAN15TA PO; +PRAZ1CAP PO; +PROP20TA PO; +PROP20TA72 PO; +SERT-138 PO; +SERT-141 PO; +SERT25TA85 PO; +THIA100TA PO; +TRAZO50TA PO; +VENL37TA PO; +ZOFR4TAB14 PO
[2019-01-28 12:18] VITALS: BP 115/88
--- NOTE | 2019-01-28 13:37 | REP ---
Left ankle: Five views. History: Pain. Findings: Five views of the left ankle demonstrate an intact ankle mortise. No fracture is visible. Soft tissues are unremarkable. Impression: No acute bony abnormality. Electronically Signed by Grady Rojo MD 01/28/2019 01:28 P
== END 2019-01-28 12:21 | disposition home or self-care (01) ==
LOC: M ED 11:00
DX: S93.402A Sprain of unspecified ligament of left ankle, initial encounter (principal); X58.XXXA Exposure to other specified factors, initial encounter; Y92.89 Other specified places as the place of occurrence of the external cause

== ENCOUNTER 2019-02-19 18:17 | Emergency (ER) | payer OTHER ==
[~2019-02-19] VITALS: Ht 177.8 cm; Wt 84.3 kg
[2019-02-19 18:17] VITALS: BP 141/82
[2019-02-19] MEDS ORDERED: ROBA500T PO (18:39)
[2019-02-19] MEDS ORDERED: IBUP-1022 PO (18:39)
[2019-02-19] MEDS ORDERED: IBUPROFEN 600 MG TAB PO ONE (18:45)
[2019-02-19] MEDS ORDERED: METHOCARBAMOL 500 MG TAB PO ONE (18:45)
== END 2019-02-19 18:55 | disposition home or self-care (01) ==
LOC: M ED 18:17
DX: S39.012A Strain of muscle, fascia and tendon of lower back, initial encounter (principal); X50.9XXA Other and unspecified overexertion or strenuous movements or postures, initial encounter; Y92.89 Other specified places as the place of occurrence of the external cause; R56.9 Unspecified convulsions; F31.9 Bipolar disorder, unspecified; F43.10 Post-traumatic stress disorder, unspecified

== ENCOUNTER 2019-07-13 06:55 | Emergency (ER) | payer OTHER ==
[~2019-07-13] VITALS: Ht 177.8 cm; Wt 74.6 kg
[~2019-07-13 06:55] MED LIST changes: +ROBA500T PO; +TRAZ1TAB10 PO; -TRAZO50TA PO
[2019-07-13 06:59] VITALS: BP 117/78
== END 2019-07-13 08:48 | disposition left against medical advice (07) ==
LOC: M ED 06:55
DX: Z53.21 Procedure and treatment not carried out due to patient leaving prior to being seen by health care provider (principal)

== ENCOUNTER 2019-12-08 07:22 | Emergency (ER) | payer OTHER ==
[~2019-12-08] VITALS: Ht 175.3 cm; Wt 69.7 kg
[2019-12-08] MEDS ORDERED: ALBUTEROL SULFATE 2.5 MG/0.5 ML INH NEB SOLN NEB ONE (08:15)
--- NOTE | 2019-12-08 08:32 | REP ---
Clinical: cough and chest pain . Comparison: 12/08/2017 . Technique: PA and lateral. Findings: The mediastinum and cardiac silhouette are normal. The lung philippe are clear and without acute consolidation, effusion, or pneumothorax. The skeletal structures are intact and normal. Impression: 1. No acute cardiopulmonary process. Electronically Signed by Alex Whiteside MD 12/08/2019 08:24 A
[2019-12-08 08:45] LABS: INFLUENZA A AMPLIFICATION POSITIVE (NEGATIVE); INFLUENZA B AMPLIFICATION NEGATIVE (NEGATIVE)
[2019-12-08] MEDS ORDERED: IBUPROFEN 800 MG TAB PO ONE (09:00)
[2019-12-08 09:14] LABS: BASO % 0.5 % (0.0-1.0); EOS % 0.4 % (0.0-3.0); HEMATOCRIT 40.7 % (42.0-52.0); HEMOGLOBIN 13.1 g/dl (13.5-17.5); LYMPH # 0.6 10^3/uL (1.5-5.0); LYMPH % 10.5 % (24.0-44.0); MEAN CORPUSCULAR HEMOGLOBIN 29.4 pg (27.0-33.0); MEAN CORPUSCULAR HGB CONC 32.2 g/dl (32.0-36.5); MEAN CORPUSCULAR VOLUME 91.3 fl (80.0-96.0); MONO # 0.6 10^3/uL (0.0-0.8); MONO % 11.6 % (0.0-5.0); NEUTROPHILS # 4.3 10^3/uL (1.5-8.5); NEUTROPHILS % 76.6 % (36.0-66.0); PLATELET COUNT, AUTOMATED 169 10^3/uL (150-450); RED BLOOD COUNT 4.46 10^6/uL (4.30-6.10); WHITE BLOOD COUNT 5.5 10^3/uL (4.0-10.0)
[2019-12-08 09:38] LABS: BLOOD UREA NITROGEN 18 MG/DL (7-18); CALCIUM LEVEL 9.1 MG/DL (8.5-10.1); CARBON DIOXIDE LEVEL 26 MEQ/L (21-32); CHLORIDE LEVEL 107 MEQ/L (98-107); CK-MB VALUE MASS < 1.0 NG/ML (<3.6); CPK CREATINE PHOSPHOKINASE 129 U/L (39-308); CREATININE FOR GFR 0.94 MG/DL (0.70-1.30); GLOMERULAR FILTRATION RATE > 60.0 (>60); GLUCOSE, FASTING 117 MG/DL (70-100); MB/CK RELATIVE INDEX 0.78 (< OR =4); POTASSIUM SERUM 4.3 MEQ/L (3.5-5.1); SODIUM LEVEL 140 MEQ/L (136-145); TROPONIN I < 0.02 NG/ML (< 0.10)
[2019-12-08] MEDS ORDERED: OSEL75CA PO (10:01)
[2019-12-08 10:17] VITALS: BP 111/67
[2019-12-08] MEDS ORDERED: PROAAER10 INH (10:31)
--- NOTE | 2019-12-09 04:53 | ECGEPIP ---
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
== END 2019-12-08 10:50 | disposition home or self-care (01) ==
LOC: M ED 07:22
DX: J09.X2 Influenza due to identified novel influenza A virus with other respiratory manifestations (principal); J45.901 Unspecified asthma with (acute) exacerbation; M79.601 Pain in right arm; M79.602 Pain in left arm; F31.9 Bipolar disorder, unspecified; F41.9 Anxiety disorder, unspecified; F43.10 Post-traumatic stress disorder, unspecified; F17.200 Nicotine dependence, unspecified, uncomplicated

== ENCOUNTER 2020-07-25 18:34 | Emergency (ER) | payer OTHER ==
[~2020-07-25] VITALS: Ht 177.8 cm; Wt 70.9 kg
[~2020-07-25 18:34] MED LIST changes: +CYCL-707 PO; -CYCL10TA PO; +OSEL75CA PO; +PROAAER10 INH
[2020-07-25] MEDS ORDERED: ASPIRIN 81 MG CHEW TABLET PO ONE (19:15)
[2020-07-25 19:27] LABS: BASO % 0.5 % (0.0-1.0); EOS # 0.2 10^3/uL (0.0-0.5); EOS % 2.4 % (0.0-3.0); HEMATOCRIT 35.4 % (42.0-52.0); HEMOGLOBIN 11.8 g/dl (13.5-17.5); LYMPH # 2.9 10^3/uL (1.5-5.0); LYMPH % 39.2 % (24.0-44.0); MEAN CORPUSCULAR HEMOGLOBIN 30.2 pg (27.0-33.0); MEAN CORPUSCULAR HGB CONC 33.3 g/dl (32.0-36.5); MEAN CORPUSCULAR VOLUME 90.5 fl (80.0-96.0); MONO # 0.6 10^3/uL (0.0-0.8); MONO % 7.7 % (0.0-5.0); NEUTROPHILS # 3.7 10^3/uL (1.5-8.5); NEUTROPHILS % 50.1 % (36.0-66.0); PLATELET COUNT, AUTOMATED 180 10^3/uL (150-450); RED BLOOD COUNT 3.91 10^6/uL (4.30-6.10); WHITE BLOOD COUNT 7.4 10^3/uL (4.0-10.0)
[2020-07-25 19:38] LABS: INR 0.93; PROTHROMBIN TIME 12.6 SECONDS (12.5-14.3)
[2020-07-25 19:39] LABS: PARTIAL THROMBOPLASTIN TIME 29.2 SECONDS (24.2-38.5)
--- NOTE | 2020-07-25 19:42 | REPVR ---
PROCEDURE INFORMATION: Exam: XR Chest, 1 View Exam date and time: 07/25/2020 7:20 PM Age: 40 years old Clinical indication: Chest pain TECHNIQUE: Imaging protocol: XR of the chest Views: 1 view. COMPARISON: CR Chest, 2 view PA, Lat 12/08/2019 8:10 AM FINDINGS: Lungs: Degree of lung inflation is normal. No evidence of pulmonary edema. No focal consolidation or parenchymal lung mass. Pleural space: No pleural effusion or pneumothorax. Heart/Mediastinum: Cardiac silhouette appears normal. No adenopathy or hilar mass. Bones/joints: Osseous structures show no concerning abnormality. IMPRESSION: No acute or focal cardiopulmonary process. Electronically signed by: Jareth Cheung On 07/25/2020 19:41:48 PM
[2020-07-25 19:55] LABS: ALBUMIN 4.2 GM/DL (3.2-5.2); ALT/SGPT 16 U/L (12-78); BILIRUBIN,DIRECT 0.2 MG/DL (0.0-0.2); BILIRUBIN,TOTAL 0.5 MG/DL (0.2-1.0); FREE T4 1.03 NG/DL (0.76-1.46); LIPASE 78 U/L (73-393); THYROID STIMULATING HORMONE 0.852 uIU/ML (0.358-3.740)
[2020-07-25 20:11] LABS: BLOOD UREA NITROGEN 16 MG/DL (7-18); CALCIUM LEVEL 9.5 MG/DL (8.5-10.1); CARBON DIOXIDE LEVEL 29 MEQ/L (21-32); CHLORIDE LEVEL 105 MEQ/L (98-107); CREATININE FOR GFR 0.97 MG/DL (0.70-1.30); GLOMERULAR FILTRATION RATE > 60.0 (>60); GLUCOSE, FASTING 85 MG/DL (70-100); POTASSIUM SERUM 4.1 MEQ/L (3.5-5.1); SODIUM LEVEL 140 MEQ/L (136-145)
[2020-07-25] MEDS ORDERED: ISOVUE-370 76% 100ML VIAL As Ordered ONE (20:33)
--- NOTE | 2020-07-25 20:48 | ECGEPIP ---
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
--- NOTE | 2020-07-25 21:42 | REPVR ---
PROCEDURE INFORMATION: Exam: CT Angiography Chest With Contrast Exam date and time: 07/25/2020 9:32 PM Age: 40 years old Clinical indication: Chest pain; Additional info: R/O pe TECHNIQUE: Imaging protocol: Computed tomographic angiography of the chest with intravenous contrast. 3D rendering (Not supervised by radiologist): MIP and/or 3D reconstructed images were created by the technologist. Radiation optimization: All CT scans at this facility use at least one of these dose optimization techniques: automated exposure control; mA and/or kV adjustment per patient size (includes targeted exams where dose is matched to clinical indication); or iterative reconstruction. Contrast material: ISOVUE 370; Contrast volume: 75 ml; Contrast route: INTRAVENOUS (IV); COMPARISON: CR PORTABLE CHEST X-RAY 07/25/2020 7:15 PM FINDINGS: Pulmonary arteries: No focal pulmonary artery filling defect to suggest acute pulmonary embolus. Aorta: No thoracic aortic aneurysm or dissection. Lungs: Pulmonary vascular/interstitial pattern does not suggest active pulmonary edema. No suspicious lung mass or air space process. No central endobronchial lesion. Pleural space: No pleural effusion or pneumothorax. Heart: No overt cardiac enlargement or abnormal volume of pericardial fluid. Mediastinal space: Residual thymic tissue is present in the anterior mediastinum. Lymph nodes: No enlarged mediastinal lymph nodes. Bones/joints: Bony structures show no acute fracture or destructive process. Soft tissues: No asymmetric abnormality of the extrathoracic soft tissues. IMPRESSION: 1. No evidence of acute pulmonary embolus. 2. No other acute or concerning focal intrathoracic abnormality. Electronically signed by: Jareth Cheung On 07/25/2020 21:42:16 PM
[2020-07-26 01:00] VITALS: BP 105/68
--- NOTE | 2020-07-26 15:28 | ECGEPIP ---
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
== END 2020-07-26 01:13 | disposition home or self-care (01) ==
LOC: M ED 18:34
DX: R07.9 Chest pain, unspecified (principal); R00.2 Palpitations; Z87.891 Personal history of nicotine dependence
CPT/HCPCS: 36415; 71045; 71275; 80048; 80076; 83690; 84439; 84443; 85025; 85610; 85730; 93005; 93041; 94760; 99285; Q9967

== ENCOUNTER → 2020-09-19 | Outpatient (REF) | payer OTHER ==
[2020-09-19 13:55] LABS: BASO % 0.3 % (0.0-1.0); EOS # 0.3 10^3/uL (0.0-0.5); LYMPH # 2.2 10^3/uL (1.5-5.0); LYMPH % 22.1 % (24.0-44.0); MEAN CORPUSCULAR HGB CONC 32.6 g/dl (32.0-36.5); MEAN CORPUSCULAR VOLUME 92.3 fl (80.0-96.0); MONO # 0.9 10^3/uL (0.0-0.8); MONO % 9.2 % (0.0-5.0); NEUTROPHILS # 6.4 10^3/uL (1.5-8.5); NEUTROPHILS % 65.1 % (36.0-66.0); PLATELET COUNT, AUTOMATED 229 10^3/uL (150-450); RED BLOOD COUNT 4.66 10^6/uL (4.30-6.10); WHITE BLOOD COUNT 9.9 10^3/uL (4.0-10.0)
[2020-09-19 14:21] LABS: CHOLESTEROL RISK RATIO 2.125 (<5); PERCENT SATURATION 15.8 % (19.7-50.0)
[2020-09-19 14:29] LABS: FOLATE 12.4 NG/ML
== END ==
LOC: M SFHCPLAZ 11:02
PROVIDERS: ATTEND Family Medicine
DX: D64.9 Anemia, unspecified (principal); I20.8 Other forms of angina pectoris

== ENCOUNTER 2022-08-04 12:06 | Emergency (ER) | payer OTHER ==
[~2022-08-04] VITALS: Ht 177.8 cm; Wt 79.2 kg
[~2022-08-04 12:06] MED LIST changes: -OLAN15TA PO; +OLAN15TA13 PO
[2022-08-04 12:07] VITALS: BP 125/82
[2022-08-04] MEDS ORDERED: PRED20TA PO (12:50)
== END 2022-08-04 12:58 | disposition home or self-care (01) ==
LOC: M ED 12:06
DX: M25.512 Pain in left shoulder (principal); F17.200 Nicotine dependence, unspecified, uncomplicated; F41.9 Anxiety disorder, unspecified; F43.10 Post-traumatic stress disorder, unspecified

== ENCOUNTER 2022-11-02 10:30 | Emergency (ER) | payer OTHER ==
[~2022-11-02] VITALS: Ht 177.8 cm; Wt 79.7 kg
[~2022-11-02 10:30] MED LIST changes: +PRED20TA PO
[2022-11-02] MEDS ORDERED: NS 1,000 ML IV ONE (12:05)
[2022-11-02] MEDS ORDERED: KETOROLAC 30 MG/ML 1ML VIAL IV ONE (12:05)
[2022-11-02 12:23] LABS: BASO % 0.4 % (0.0-1.0); EOS # 0.1 10^3/uL (0.0-0.5); EOS % 1.1 % (0.0-3.0); HEMATOCRIT 44.8 % (42.0-52.0); HEMOGLOBIN 14.9 g/dl (13.5-17.5); LYMPH % 27.5 % (24.0-44.0); MEAN CORPUSCULAR HEMOGLOBIN 30.1 pg (27.0-33.0); MEAN CORPUSCULAR HGB CONC 33.3 g/dl (32.0-36.5); MEAN CORPUSCULAR VOLUME 90.5 fl (80.0-96.0); MONO # 0.6 10^3/uL (0.0-0.8); MONO % 7.9 % (2.0-8.0); NEUTROPHILS # 4.5 10^3/uL (1.5-8.5); NEUTROPHILS % 62.8 % (36.0-66.0); PLATELET COUNT, AUTOMATED 240 10^3/uL (150-450); RED BLOOD COUNT 4.95 10^6/uL (4.30-6.10); WHITE BLOOD COUNT 7.1 10^3/uL (4.0-10.0)
[2022-11-02 12:51] LABS: LIPASE 36 U/L (12-53)
[2022-11-02 12:53] LABS: ALBUMIN 4.2 G/DL (3.2-5.2); ALKALINE PHOSPHATASE 77 U/L (46-116); ALT/SGPT 11 U/L (7.0-40); AST/SGOT 17 U/L (<34); BILIRUBIN,DIRECT 0.2 MG/DL (<0.4); BILIRUBIN,TOTAL 0.6 MG/DL (0.3-1.2); BLOOD UREA NITROGEN 14 MG/DL (9-23); CARBON DIOXIDE LEVEL 28 MMOL/L (20-31); CHLORIDE LEVEL 102 MMOL/L (98-107); CREATININE FOR GFR 0.81 MG/DL (0.70-1.30); GLOMERULAR FILTRATION RATE > 60.0 (>60); GLUCOSE, FASTING 89 MG/DL (60-100); POTASSIUM SERUM 4.4 MMOL/L (3.5-5.1); SODIUM LEVEL 139 MMOL/L (136-145); TOTAL PROTEIN 7.5 G/DL (5.7-8.2)
[2022-11-02] MEDS ORDERED: ISOVUE-370 76% 100ML VIAL As Ordered ONE (12:54)
[2022-11-02] MEDS ORDERED: METR-265 PO (14:01)
[2022-11-02] MEDS ORDERED: CIPR-249 PO (14:01)
[2022-11-02] MEDS ORDERED: IBUP80TA PO (14:01)
[2022-11-02 14:11] VITALS: BP 127/89
== END 2022-11-02 14:19 | disposition home or self-care (01) ==
LOC: M ED 12:34
DX: K57.32 Diverticulitis of large intestine without perforation or abscess without bleeding (principal); N20.0 Calculus of kidney; F17.210 Nicotine dependence, cigarettes, uncomplicated

== ENCOUNTER 2022-12-21 07:03 | Emergency (ER) | payer OTHER ==
[~2022-12-21] VITALS: Ht 177.8 cm; Wt 80.0 kg
[~2022-12-21 07:03] MED LIST changes: +CIPR-249 PO; +IBUP80TA PO; +METR-265 PO
[2022-12-21 07:04] VITALS: BP 124/88
[2022-12-21] MEDS ORDERED: IBUP80TA PO (10:05)
[2022-12-21] MEDS ORDERED: AMOX500C PO (10:05)
[2022-12-21] MEDS ORDERED: PERC5TAB12 PO (10:05)
== END 2022-12-21 10:22 | disposition home or self-care (01) ==
LOC: M ED 07:03
DX: S02.5XXA Fracture of tooth (traumatic), initial encounter for closed fracture (principal); K02.9 Dental caries, unspecified; F17.200 Nicotine dependence, unspecified, uncomplicated; Z79.899 Other long term (current) drug therapy

== ENCOUNTER 2023-01-25 10:13 | Emergency (ER) | payer OTHER ==
[~2023-01-25] VITALS: Ht 177.8 cm; Wt 80.5 kg
[~2023-01-25 10:13] MED LIST changes: +AMOX500C PO; +PERC5TAB12 PO
[2023-01-25] MEDS ORDERED: KETOROLAC TROMETHAMINE 10 MG TAB PO ONE (12:05)
[2023-01-25 12:20] VITALS: BP 126/78
== END 2023-01-25 12:25 | disposition home or self-care (01) ==
LOC: M ED 10:13
DX: M25.532 Pain in left wrist (principal)

== ENCOUNTER 2023-10-10 12:05 | Emergency (ER) | payer OTHER ==
[~2023-10-10] VITALS: Ht 177.8 cm; Wt 72.7 kg
[2023-10-10 13:26] LABS: RSV AMPLIFICATION NEGATIVE (NEGATIVE)
[2023-10-10 15:03] VITALS: BP 137/91; TEMP 98.8; O2SAT 99
== END 2023-10-10 15:09 | disposition home or self-care (01) ==
LOC: M ED 12:05 → EDBD 12:05 → M ED 15:09
DX: J06.9 Acute upper respiratory infection, unspecified (principal)

== ENCOUNTER 2024-02-04 19:56 | Inpatient (IN) | payer OTHER ==
[~2024-02-04] VITALS: Ht 177.8 cm; Wt 78.9 kg
[2024-02-04 21:00] LABS: BASO % 0.1 % (0.0-1.0); HEMATOCRIT 45.1 % (42.0-52.0); LYMPH # 0.9 10^3/uL (1.5-5.0); MEAN CORPUSCULAR HEMOGLOBIN 32.3 pg (27.0-33.0); MEAN CORPUSCULAR HGB CONC 35.5 g/dl (32.0-36.5); MEAN CORPUSCULAR VOLUME 90.9 fl (80.0-96.0); MONO # 1.2 10^3/uL (0.0-0.8); MONO % 8.1 % (2.0-8.0); NEUTROPHILS % 85.3 % (36.0-66.0); PLATELET COUNT, AUTOMATED 225 10^3/uL (150-450); RED BLOOD COUNT 4.96 10^6/uL (4.30-6.10); WHITE BLOOD COUNT 15.2 10^3/uL (4.0-10.0)
[2024-02-04 21:37] LABS: LIPASE 411 U/L (12-53)
[2024-02-04 21:39] LABS: ALBUMIN 4.4 G/DL (3.2-5.2); ALKALINE PHOSPHATASE 79 U/L (46-116); ALT/SGPT 30 U/L (7.0-40); AST/SGOT 29 U/L (<34); BILIRUBIN,DIRECT 0.4 MG/DL (<0.4); BILIRUBIN,TOTAL 1.2 MG/DL (0.3-1.2); BLOOD UREA NITROGEN 23 MG/DL (9-23); CARBON DIOXIDE LEVEL 22 MMOL/L (20-31); CHLORIDE LEVEL 105 MMOL/L (98-107); CREATININE FOR GFR 0.81 MG/DL (0.70-1.30); GLOMERULAR FILTRATION RATE > 60.0 (>60); GLUCOSE, FASTING 139 MG/DL (60-100); POTASSIUM SERUM 3.7 MMOL/L (3.5-5.1); SODIUM LEVEL 140 MMOL/L (136-145); TOTAL PROTEIN 7.4 G/DL (5.7-8.2)
[2024-02-05] MEDS ORDERED: ISOVUE-370 76% 100ML VIAL As Ordered ONE (01:08)
[2024-02-05] MEDS: NS 1,000 ML IV ONE (01:20)
[2024-02-05] MEDS: MORPHINE 4 MG/ML 1ML VIAL IV PRN ×2 (01:21→09:18)
[2024-02-05] MEDS: ONDANSETRON 4MG 2ML VIAL IV ONE (01:21)
[2024-02-05 01:29] LABS: ETHYL ALCOHOL (ETHANOL) < 0.003 % (0.000-0.010)
[2024-02-05] MEDS ORDERED: ACETAMINOPHEN TAB 650MG DOSE (2X325MG) PO PRN (03:20)
[2024-02-05] MEDS ORDERED: LORazepam 2 MG TAB PO PRN (03:20)
[2024-02-05] MEDS ORDERED: SENNA 8.6 MG TAB (SENOKOT) PO PRN (03:20)
[2024-02-05] MEDS ORDERED: NORCO, ANEXSIA 5/325MG TABLET (HYDROcodone/ACETAMINOPHEN) PO PRN (03:20)
[2024-02-05] MEDS ORDERED: PROMETHAZINE 25MG/ML 1ML VIAL IV PRN (03:20)
[2024-02-05] MEDS: NS 1,000 ML IV SCH (04:38)
[2024-02-05 07:41] LABS: HEMOGLOBIN 14.7 g/dl (13.5-17.5); MEAN CORPUSCULAR HGB CONC 34.2 g/dl (32.0-36.5); MEAN CORPUSCULAR VOLUME 93.7 fl (80.0-96.0); PLATELET COUNT, AUTOMATED 188 10^3/uL (150-450); RED BLOOD COUNT 4.59 10^6/uL (4.30-6.10); WHITE BLOOD COUNT 12.2 10^3/uL (4.0-10.0)
[2024-02-05 08:41] LABS: ALBUMIN 3.5 G/DL (3.2-5.2); ALKALINE PHOSPHATASE 67 U/L (46-116); ALT/SGPT 22 U/L (7.0-40); AST/SGOT 22 U/L (<34); BILIRUBIN,TOTAL 1.5 MG/DL (0.3-1.2); BLOOD UREA NITROGEN 18 MG/DL (9-23); CALCIUM LEVEL 8.6 MG/DL (8.5-10.1); CARBON DIOXIDE LEVEL 26 MMOL/L (20-31); CHLORIDE LEVEL 108 MMOL/L (98-107); CREATININE FOR GFR 0.83 MG/DL (0.70-1.30); GLOMERULAR FILTRATION RATE > 60.0 (>60); GLUCOSE, FASTING 98 MG/DL (60-100); POTASSIUM SERUM 3.5 MMOL/L (3.5-5.1); SODIUM LEVEL 141 MMOL/L (136-145); TOTAL PROTEIN 6.1 G/DL (5.7-8.2)
[2024-02-05] MEDS: FOLIC ACID 1MG TAB PO SCH (09:19)
[2024-02-05] MEDS: MULTIVITAMINS/MINERALS THERAP 1 TAB PO SCH (09:19)
[2024-02-05] MEDS: THIAMINE 100 MG TAB PO SCH (09:19)
[2024-02-05] MEDS ORDERED: HOME MED LIST COMPLETE! XX SCH (09:35)
[2024-02-05] MEDS: ENOXAPARIN 40MG/0.4ML SYRINGE (J1650 PER 10MG) SC SCH (10:03)
[2024-02-05] MEDS ORDERED: HYDROMORPHONE HCL 0.5 MG/ 0.5 ML SYRINGE IV PRN (11:40)
[2024-02-05] MEDS ORDERED: KCL 10MEQ/100ML SWI (KRUN) 10 MEQ in IV 1 EA IV SCH (12:00)
[2024-02-05] MEDS: LR 1,000 ML IV SCH (13:04)
[2024-02-05] MEDS: PANTOPRAZOLE 40MG VIAL IV SCH (13:05)
[2024-02-05 16:15] VITALS: BP 149/90; TEMP 98.6; O2SAT 97
[2024-02-05 16:18] VITALS: BP 149/90
[2024-02-05] MEDS: KCL 10MEQ/100ML SWI (KRUN) 10 MEQ in IV 1 EA IV SCH (16:27)
[2024-02-05] MEDS: HYDROMORPHONE HCL 0.5 MG/ 0.5 ML SYRINGE IV PRN (16:27)
[2024-02-05 20:30] VITALS: BP 113/75; TEMP 99; O2SAT 98
[2024-02-05] MEDS: ONDANSETRON 4MG 2ML VIAL IV PRN (20:40)
[2024-02-05 22:01] VITALS: BP 125/60
[2024-02-06 05:10] VITALS: BP 117/80; TEMP 98.2; O2SAT 97
[2024-02-06 06:04] VITALS: BP 117/80
[2024-02-06 07:13] LABS: BASO % 0.2 % (0.0-1.0); EOS # 0.1 10^3/uL (0.0-0.5); EOS % 0.7 % (0.0-3.0); HEMATOCRIT 38.6 % (42.0-52.0); HEMOGLOBIN 13.3 g/dl (13.5-17.5); LYMPH # 1.2 10^3/uL (1.5-5.0); LYMPH % 10.5 % (24.0-44.0); MEAN CORPUSCULAR HEMOGLOBIN 32.8 pg (27.0-33.0); MEAN CORPUSCULAR HGB CONC 34.5 g/dl (32.0-36.5); MEAN CORPUSCULAR VOLUME 95.1 fl (80.0-96.0); MONO # 1.1 10^3/uL (0.0-0.8); MONO % 9.5 % (2.0-8.0); NEUTROPHILS # 9.3 10^3/uL (1.5-8.5); NEUTROPHILS % 78.5 % (36.0-66.0); PLATELET COUNT, AUTOMATED 151 10^3/uL (150-450); RED BLOOD COUNT 4.06 10^6/uL (4.30-6.10); WHITE BLOOD COUNT 11.8 10^3/uL (4.0-10.0)
[2024-02-06 07:36] LABS: BLOOD UREA NITROGEN 11 MG/DL (9-23); CALCIUM LEVEL 8.2 MG/DL (8.5-10.1); CARBON DIOXIDE LEVEL 25 MMOL/L (20-31); CHLORIDE LEVEL 103 MMOL/L (98-107); CREATININE FOR GFR 0.78 MG/DL (0.70-1.30); GLOMERULAR FILTRATION RATE > 60.0 (>60); GLUCOSE, FASTING 63 MG/DL (60-100); POTASSIUM SERUM 3.7 MMOL/L (3.5-5.1); SODIUM LEVEL 136 MMOL/L (136-145)
[2024-02-06 13:33] LABS: INR 1.06; PROTHROMBIN TIME 13.5 SECONDS (12.5-14.5)
[2024-02-06 14:00] VITALS: BP 141/91; TEMP 98.8; O2SAT 93
[2024-02-06 21:00] VITALS: BP 115/70; TEMP 99; O2SAT 96
[2024-02-06] MEDS: PANTOPRAZOLE 40MG VIAL IV SCH (21:21)
[2024-02-06 22:01] VITALS: BP 115/70
[2024-02-07 05:25] VITALS: BP 131/89; TEMP 98.2; O2SAT 96
[2024-02-07 06:00] VITALS: BP 131/89
[2024-02-07 07:14] LABS: BASO % 0.3 % (0.0-1.0); EOS # 0.1 10^3/uL (0.0-0.5); EOS % 1.6 % (0.0-3.0); HEMATOCRIT 37.1 % (42.0-52.0); HEMOGLOBIN 12.5 g/dl (13.5-17.5); LYMPH # 0.9 10^3/uL (1.5-5.0); LYMPH % 10.7 % (24.0-44.0); MEAN CORPUSCULAR HEMOGLOBIN 32.3 pg (27.0-33.0); MEAN CORPUSCULAR HGB CONC 33.7 g/dl (32.0-36.5); MEAN CORPUSCULAR VOLUME 95.9 fl (80.0-96.0); MONO # 0.9 10^3/uL (0.0-0.8); MONO % 10.1 % (2.0-8.0); NEUTROPHILS # 6.7 10^3/uL (1.5-8.5); NEUTROPHILS % 76.8 % (36.0-66.0); PLATELET COUNT, AUTOMATED 142 10^3/uL (150-450); RED BLOOD COUNT 3.87 10^6/uL (4.30-6.10); WHITE BLOOD COUNT 8.7 10^3/uL (4.0-10.0)
[2024-02-07 07:34] LABS: LIPASE 118 U/L (12-53)
[2024-02-07 07:37] LABS: ALBUMIN 2.5 G/DL (3.2-5.2); ALKALINE PHOSPHATASE 56 U/L (46-116); ALT/SGPT 14 U/L (7.0-40); AST/SGOT 16 U/L (<34); BILIRUBIN,TOTAL 1.4 MG/DL (0.3-1.2); BLOOD UREA NITROGEN 9 MG/DL (9-23); CALCIUM LEVEL 8.2 MG/DL (8.5-10.1); CARBON DIOXIDE LEVEL 26 MMOL/L (20-31); CHLORIDE LEVEL 104 MMOL/L (98-107); CREATININE FOR GFR 0.78 MG/DL (0.70-1.30); GLOMERULAR FILTRATION RATE > 60.0 (>60); GLUCOSE, FASTING 63 MG/DL (60-100); MAGNESIUM LEVEL 1.6 MG/DL (1.8-2.4); POTASSIUM SERUM 3.6 MMOL/L (3.5-5.1); SODIUM LEVEL 138 MMOL/L (136-145); TOTAL PROTEIN 5.3 G/DL (5.7-8.2)
[2024-02-07] MEDS ORDERED: MORPHINE 2 MG/ML 1ML VIAL IV PRN (11:55)
[2024-02-07] MEDS: PERCOCET 5MG/325MG TAB PO PRN (13:15)
[2024-02-07] MEDS: MAG SULF 1GM/100ML (MAG RUN) 1 GM in IV 1 EA IV SCH (13:16)
[2024-02-07 14:00] VITALS: BP 120/74; TEMP 98.6; O2SAT 95
[2024-02-07 21:02] VITALS: BP 134/87; TEMP 97.5; O2SAT 96
[2024-02-07 22:00] VITALS: BP 134/87
[2024-02-08 05:47] VITALS: BP 127/81; TEMP 97.5; O2SAT 97
[2024-02-08 06:39] LABS: BASO % 0.3 % (0.0-1.0); EOS # 0.2 10^3/uL (0.0-0.5); EOS % 2.5 % (0.0-3.0); HEMATOCRIT 34.8 % (42.0-52.0); HEMOGLOBIN 11.8 g/dl (13.5-17.5); LYMPH # 1.2 10^3/uL (1.5-5.0); MEAN CORPUSCULAR HGB CONC 33.9 g/dl (32.0-36.5); MEAN CORPUSCULAR VOLUME 94.3 fl (80.0-96.0); MONO # 0.7 10^3/uL (0.0-0.8); MONO % 10.3 % (2.0-8.0); NEUTROPHILS # 4.7 10^3/uL (1.5-8.5); NEUTROPHILS % 68.5 % (36.0-66.0); PLATELET COUNT, AUTOMATED 165 10^3/uL (150-450); RED BLOOD COUNT 3.69 10^6/uL (4.30-6.10); WHITE BLOOD COUNT 6.9 10^3/uL (4.0-10.0)
[2024-02-08 07:09] LABS: BLOOD UREA NITROGEN 7 MG/DL (9-23); CALCIUM LEVEL 7.9 MG/DL (8.5-10.1); CARBON DIOXIDE LEVEL 30 MMOL/L (20-31); CHLORIDE LEVEL 105 MMOL/L (98-107); CREATININE FOR GFR 0.79 MG/DL (0.70-1.30); GLOMERULAR FILTRATION RATE > 60.0 (>60); GLUCOSE, FASTING 114 MG/DL (60-100); POTASSIUM SERUM 3.6 MMOL/L (3.5-5.1); SODIUM LEVEL 140 MMOL/L (136-145)
[2024-02-08] MEDS ORDERED: THIA100TA PO (10:28)
[2024-02-08] MEDS ORDERED: FOLI1TAB11 PO (10:28)
[2024-02-08] MEDS ORDERED: PROT1TAB2 PO (10:28)
[2024-02-08] MEDS ORDERED: SUCR1SS PO (10:28)
[2024-02-08] MEDS ORDERED: HYDR-3713 PO (10:28)
[2024-02-08] MEDS ORDERED: ONDA-83 PO (10:47)
== END 2024-02-08 11:40 | disposition home or self-care (01) | DRG 282 ==
LOC: M ED 19:56 → M ED INP 02-05 03:17 → M MS5PR 02-05 16:10
PROVIDERS: ADMIT Family Medicine; ATTEND Internal Medicine
DX: K85.20 Alcohol induced acute pancreatitis without necrosis or infection (principal); F10.20 Alcohol dependence, uncomplicated; K52.9 Noninfective gastroenteritis and colitis, unspecified; K92.1 Melena

== ENCOUNTER → 2024-02-15 | Outpatient (CLI) | payer OTHER ==
[~2024-02-15] MED LIST changes: +FOLI1TAB11 PO; +HYDR-3713 PO; +ONDA-83 PO; +PROT1TAB2 PO; +SUCR1SS PO
[2024-02-15 11:30] LABS: HEMATOCRIT 44.2 % (42.0-52.0); HEMOGLOBIN 14.2 g/dl (13.5-17.5); MEAN CORPUSCULAR HEMOGLOBIN 30.8 pg (27.0-33.0); MEAN CORPUSCULAR HGB CONC 32.1 g/dl (32.0-36.5); MEAN CORPUSCULAR VOLUME 95.9 fl (80.0-96.0); PLATELET COUNT, AUTOMATED 386 10^3/uL (150-450); RED BLOOD COUNT 4.61 10^6/uL (4.30-6.10); WHITE BLOOD COUNT 6.5 10^3/uL (4.0-10.0)
== END ==
LOC: M LAB 10:05
PROVIDERS: ATTEND Internal Medicine
DX: R10.9 Unspecified abdominal pain (principal)

== ENCOUNTER → 2024-06-23 | Outpatient (REF) | payer OTHER ==
[2024-06-23 18:39] LABS: BASO % 0.4 % (0.0-1.0); EOS # 0.2 10^3/uL (0.0-0.5); EOS % 3.3 % (0.0-3.0); HEMATOCRIT 48.3 % (42.0-52.0); LYMPH # 1.8 10^3/uL (1.5-5.0); LYMPH % 24.7 % (24.0-44.0); MEAN CORPUSCULAR HEMOGLOBIN 30.6 pg (27.0-33.0); MEAN CORPUSCULAR HGB CONC 33.1 g/dl (32.0-36.5); MEAN CORPUSCULAR VOLUME 92.4 fl (80.0-96.0); MONO # 0.5 10^3/uL (0.0-0.8); MONO % 6.8 % (2.0-8.0); NEUTROPHILS # 4.6 10^3/uL (1.5-8.5); NEUTROPHILS % 64.4 % (36.0-66.0); PLATELET COUNT, AUTOMATED 298 10^3/uL (150-450); RED BLOOD COUNT 5.23 10^6/uL (4.30-6.10); WHITE BLOOD COUNT 7.2 10^3/uL (4.0-10.0)
[2024-06-23 18:51] LABS: HEMOGLOBIN A1c 5.3 % (4.0-6.0)
[2024-06-23 19:07] LABS: ALBUMIN 4.5 G/DL (3.2-5.2); ALKALINE PHOSPHATASE 77 U/L (46-116); ALT/SGPT 27 U/L (7.0-40); AST/SGOT 16 U/L (<34); BILIRUBIN,DIRECT 0.1 MG/DL (<0.4); BILIRUBIN,TOTAL 0.5 MG/DL (0.3-1.2); BLOOD UREA NITROGEN 17 MG/DL (9-23); CALCIUM LEVEL 10.4 MG/DL (8.5-10.1); CARBON DIOXIDE LEVEL 29 MMOL/L (20-31); CHLORIDE LEVEL 103 MMOL/L (98-107); CHOLESTEROL LEVEL 240 MG/DL (<200); CHOLESTEROL RISK RATIO 4.09 (<5); CREATININE FOR GFR 0.99 MG/DL (0.70-1.30); GLOMERULAR FILTRATION RATE > 60.0 (>60); GLUCOSE, FASTING 93 MG/DL (60-100); HDL CHOLESTEROL 58.6 MG/DL (>40); LDL CHOLESTEROL 155.2 MG/DL (<100); NON-HDL-C 181.4 MG/DL; SODIUM LEVEL 136 MMOL/L (136-145); THYROID STIMULATING HORMONE 1.612 uIU/ML (0.55-4.78); TOTAL 25(OH) VITAMIN D 35.1 NG/ML (20.0-100.0); TOTAL PROTEIN 7.7 G/DL (5.7-8.2); TRIGLYCERIDES LEVEL 131 MG/DL (<150)
== END ==
LOC: M LAB REF 16:26
PROVIDERS: ATTEND Nurse Practitioner Family
DX: E55.9 Vitamin D deficiency, unspecified (principal); E66.3 Overweight; R53.83 Other fatigue; F10.21 Alcohol dependence, in remission; Z11.9 Encounter for screening for infectious and parasitic diseases, unspecified

== ENCOUNTER → 2024-09-21 | Outpatient (CLI) | payer OTHER ==
[~2024-09-21] MED LIST changes: -OLAN15TA13 PO; +OLAN15TA69 PO
== END ==
LOC: M RAD 10:16
PROVIDERS: ATTEND Nurse Practitioner Family
DX: M79.672 Pain in left foot (principal); M77.32 Calcaneal spur, left foot

== ENCOUNTER → 2024-11-01 | Outpatient (REF) | payer OTHER ==
[2024-11-01 18:45] LABS: BILIRUBIN,DIRECT 0.1 MG/DL (<0.4); BILIRUBIN,TOTAL 0.4 MG/DL (0.3-1.2); CHOLESTEROL RISK RATIO 2.88 (<5); HDL CHOLESTEROL 71.7 MG/DL (>40); LDL CHOLESTEROL 124.7 MG/DL (<100); NON-HDL-C 135.3 MG/DL; TOTAL PROTEIN 7.3 G/DL (5.7-8.2)
== END ==
LOC: M LAB REF 16:45
PROVIDERS: ATTEND Nurse Practitioner Family
DX: E78.00 Pure hypercholesterolemia, unspecified (principal); F10.21 Alcohol dependence, in remission